=== PATIENT | female | born 2000 | race Caucasian/White ===

== ENCOUNTER 2020-02-12 20:50 | Emergency (ER) | payer OTHER, SELFPAY ==
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
[2020-02-12 20:53] VITALS: BP 136/78; PULSE 93; RESP 16; TEMP 36; O2SAT 100
[2020-02-12] MEDS: KETOROLAC (*BKC) 60 MG/2 ML VIAL IM (21:06)
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
== END 2020-02-12 21:40 | disposition home or self-care (01) ==
LOC: ANHED 21:35
PROVIDERS: Emergency Provider Emergency Medicine
DX: S16.1XXA Strain of muscle, fascia and tendon at neck level, initial encounter (principal); S49.92XA Unspecified injury of left shoulder and upper arm, initial encounter; V47.6XXA Car passenger injured in collision with fixed or stationary object in traffic accident, initial encounter
CPT/HCPCS: 72125; 96372; 99284; J1885

== ENCOUNTER 2021-11-12 01:08 | Emergency (ER) | payer BC, SELFPAY ==
[2021-11-12 01:10] VITALS: BP 115/74; PULSE 78; RESP 16; TEMP 36.9; O2SAT 99
--- NOTE | 2021-11-12 01:24 | ED.SKABFB ---
HPI - Skin/Abscess/Foreign Bdy General Chief complaint: Skin/Abscess/Foreign Body Stated complaint: itching rash to arms and legs x 1 week Time Seen by Provider: 11/12/21 01:16 History of Present Illness HPI narrative: 21-year-old female presents the emergency room for evaluation of a rash on her bilateral inner thighs. Patient states the rash is pruritic and has not been very responsive to history of Benadryl. Patient denies fever. Related Data Allergies Allergy/AdvReac Type Severity Reaction Status Date / Time No Known Allergies Allergy Verified 11/12/21 01:15 Review of Systems Review of Systems: CONSTITUTIONAL: Denies fever, chills, or sweats. EYES: Denies visual changes, redness, or discharge. ENT: Denies rhinorrhea, congestion, sore throat, or otalgia. CARDIOVASCULAR: Denies chest pain, palpitations, or edema. RESPIRATORY: Denies cough or dyspnea. GASTROINTESTINAL: Denies abdominal pain, nausea, vomiting, or diarrhea. GENITOURINARY: Denies dysuria or hematuria. SKIN: Reports rash to inner thighs MUSCULOSKELETAL: Denies back pain, joint pain, or myalgia. NEUROLOGIC: Denies headache, numbness, dizziness, or weakness. PSYCHIATRIC: Denies anxiety or depression. [facility] Social History Social History Smoking status: Never smoker Gender identity (if verbalized by the patient): Female Exam Narrative: GENERAL: Well-appearing, well-nourished, no physical limitations, and in no acute distress. HEAD: Normocephalic, atraumatic. EYES: Conjunctivae normal, PERRLA and EOMI. CHEST: Clear to auscultation. No respiratory distress. No wheezes rales or rhonchi. No tenderness. HEART: Regular rate and rhythm. No murmur heard. Normal peripheral pulses. EXTREMITIES: Normal range of motion. No edema. No clubbing or cyanosis SKIN: Erythematous papulovesicular rash located to bilateral medial thighs. No drainage noted NEURO: No focal deficits. Alert and oriented x3. MAEW. CN's II-XI intact bilaterally, normal gait PSYCH: Cooperative. Normal mood and affect. Course Vital Signs Vital signs: Vital Signs Temperature 36.9 C 11/12/21 01:10 Pulse Rate 78 11/12/21 01:10 Respiratory Rate 16 11/12/21 01:10 Blood Pressure 115/74 11/12/21 01:10 Pulse Oximetry 99 11/12/21 01:10 Oxygen Delivery Room Air 11/12/21 01:10 Temperature 36.9 C 11/12/21 01:10 Pulse Rate 78 11/12/21 01:10 Respiratory Rate 16 11/12/21 01:10 Blood Pressure 115/74 11/12/21 01:10 Pulse Oximetry 99 11/12/21 01:10 Oxygen Delivery Room Air 11/12/21 01:10 Discharge Plan Discharge Clinical Impression: Silvino acuna Patient Disposition: Home, Self-Care Condition: Stable Instructions: Antibiotic Form, Acute Rash (ED) Additional Instructions: Apply the steroid cream to the affected areas twice a day. Begin taking steroids tomorrow. After the steroid cream has completely dried you may use cornstarch body powder to assist in moisture absorption. Prescriptions: New triamcinolone acetonide 0.1 % cream 1 applic topical BID Qty: 30 0RF prednisone 20 mg tablet 40 mg PO DAILY 5 Days Qty: 10 0RF No Action cyclobenzaprine 10 mg tablet 10 mg PO TID PRN (Reason: muscle spasm) Qty: 7 0RF naproxen 500 mg tablet 500 mg PO BID PRN (Reason: pain) Qty: 7 0RF Follow-up/Referrals: PHYSICIAN,PILLAR WORKER [Primary Care Provider] - Time of Disposition: 01:23
== END 2021-11-12 01:50 | disposition home or self-care (01) ==
LOC: ANHED 01:28
PROVIDERS: Emergency Provider Nurse Practitioner Family
DX: L74.0 Miliaria rubra (principal)
CPT/HCPCS: 99283